=== PATIENT | male | born 1980 | race Caucasian/White ===

== ENCOUNTER 2020-11-21 05:16 | Emergency (ER) | payer SELFPAY ==
[2020-11-21 05:24] VITALS: BP 132/78; PULSE 81; RESP 17; TEMP 36.6; O2SAT 96; BMI 27.8
[2020-11-21 05:27] VITALS: BP 132/78; PULSE 80; PULSE 82; RESP 18; O2SAT 97
--- NOTE | 2020-11-21 05:28 | XR_ITS ---
WS: [id number] Right elbow, 3 views, 11/21/2020 Clinical Data: pain Comparison: None. Findings: No fractures or dislocations are seen. The radial head is normal. The soft tissues are unremarkable. There is a prominent olecranon spur. There is an unfused medial humeral epicondylar apophysis or respiratory director toñito calcification from repetitive trauma. XR/XR elbow RT min 3V* [id number] Impression: 1. Prominent olecranon spur. 2. 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
--- NOTE | 2020-11-21 05:34 | W.ED.EXTPRO ---
HPI - Extremity Problem General: Chief complaint: Extremity Injury, Upper Stated complaint: right arm pain. Time Seen by Provider: 11/21/20 05:25 Source: patient Mode of arrival: ambulatory Limitations: no limitations History of Present Illness: HPI Narrative: 40-year-old male states been having right elbow pain for last 2 to 3 weeks. He states pain is sharp in nature is much worse when he moves his arm. He states that the pain currently is a 4 out of 10. Denies any injuries. Denies any fevers. States the pain is improved with rest. MD Complaint: extremity pain Associated symptoms: Deny chest pain, fever(s) or rash Review of Systems Const: Denies: fever(s), chills, body aches or change in appetite Eyes: Denies: blurry vision or eye discomfort ENMT: Denies: throat pain or dental pain Card: Denies: chest pain Resp: Denies: dyspnea GI: Denies: abdominal pain, nausea, vomiting or diarrhea : Denies: dysuria Musc: Reports: extremity pain and joint pain; Denies: neck pain or back pain Skin/Breast: Denies: rash Neuro: Denies: headache(s) Psych: Denies: depression Sebastián/Lymph: Denies: easy bruising All/Imm: Denies: urticaria Physical Exam Const: COMMON NORMALS: no acute distress, patient oriented x3 and healthy appearing HENMT: COMMON NORMALS: normocephalic and atraumatic HEAD & SCALP: normocephalic and atraumatic Eye: COMMON NORMALS: Equal, round and reactive pupils present and EOMs intact bilaterally PUPIL: Yes Equal, round and reactive pupils present Neck/C-Spine: COMMON NORMALS: full ROM and supple Chest: COMMONS NORMALS: normal inspection of the chest and normal palpation of entire chest wall Resp: COMMON NORMALS: normal respiratory effort, No retractions, No use of accessory muscles and clear to auscultation bilaterally AUSCULTATION: clear to auscultation bilaterally Cardio: COMMON NORMALS: regular rate, regular rhythm and No murmurs present (Cardio) RATE: regular rate RHYTHM: regular rhythm GI: COMMON NORMALS: Normal to inspection, nondistended, normoactive bowel sounds present, Soft to palpation, non-tender and no masses PALPATION: Yes Soft to palpation Extremity: COMMON NORMALS: normal to inspection and full ROM NARRATIVE EXTREMITY EXAM: Slight tenderness over the lateral portion of elbow. No warmth or swelling. He has full range of motion's. Distal pulses are intact. Neuro: COMMON NORMALS: patient oriented x3, moves all extremities and no focal motor deficits Psych: COMMON NORMALS: mental status grossly normal, Normal thought process present and cooperative THOUGHT PROCESS: Normal thought process present Skin: COMMON NORMALS: no rashes or lesions noted and no wounds GENERAL SKIN EXAM: no rashes or lesions noted Course Vital Signs: Vital signs: Vital Signs Temperature 97.9 F 11/21/20 05:24 Pulse Rate 80 11/21/20 05:27 Respiratory Rate 18 11/21/20 05:27 Blood Pressure 132/78 11/21/20 05:27 Pulse Oximetry 97 11/21/20 05:27 MDM - Extremity (Nontraumatic) MDM Narrative: Medical decision making narrative: Patient presents here with a elbow pain is likely tendinitis or sprain. X-ray is negative. Exam here is benign with no signs of septic joint. Will place patient on Naprosyn he is stable for discharge. He is to follow-up his PCP in 2 to 4 days return if worsening. Imaging Data^: X-ray right elbow: Attestation: I personally reviewed and interpreted this imaging study as follows: My impression: No acute abnormality Discharge Plan Discharge Patient Disposition: Home Clinical Impression: Elbow pain, right Condition: Stable Prescriptions: New Naprosyn 500 mg tablet 500 mg PO BID PRN (Reason: pain) Qty: 20 RF: 0 Discharge Orders: Discharge ED (Routine); Ordered 11/21/20 Ordered By: Jo Ayala Discharge Diet: Advance as tolerated Discharge Activity: Resume usual activity Patient Instructions: Elbow Sprain (ED) Coding Level of Care Code ED [employer] Work[employer] for Daniella Fwd Exam Comprehensive
[2020-11-21] MEDS: ketorolac 60 mg/2 mL INJ IM (05:45)
[2020-11-21 06:05] VITALS: BP 132/80; PULSE 82; RESP 18; O2SAT 97
== END 2020-11-21 06:05 | disposition home or self-care (01) ==
PROVIDERS: Emergency Provider Emergency Medicine
DX: M25.521 Pain in right elbow (principal)
CPT/HCPCS: 12345; 73080; 96372; 99281; 99283; J1885